=== PATIENT | female | born 1960 | race Caucasian/White ===

== ENCOUNTER → 2018-05-17 19:30 | Outpatient (REF) | payer OTHER, SELFPAY ==
[2018-05-17 19:47] LABS: Alanine Aminotransferase 30 IU/L (9-52); Albumin 4.8 g/dL (3.5-5.0); Albumin Globulin Ratio 1.5 (1.0-2.8); Alkaline Phosphatase 66 U/L (38-126); Aspartate Aminotransferase 22 IU/L (14-36); BUN Creatinine Ratio 18.6 (6-22); Bilirubin Total 0.4 mg/dL (0.2-1.3); Blood Urea Nitrogen 13 mg/dL (7-17); Calcium 9.8 mg/dL (8.4-10.2); Carbon Dioxide 26 mmol/L (22-32); Chloride 100 mmol/L (98-107); Cholesterol 217 mg/dL (140-199); Estimated Glomerular Filt Rate > 60.0 mL/min (>60); Globulin 3.1 g/dL (1.7-4.1); Glucose 105 mg/dL (70-100); HDL Cholesterol 88 mg/dL (40-60); HEMOLYSIS < 15 (0-50); LDL Cholesterol Calculated 93 mg/dL (<100); Potassium 3.8 mmol/L (3.4-5.1); Sodium 137 mmol/L (137-145); Total Protein 7.9 g/dL (6.3-8.2); Triglycerides 182 mg/dL (35-150)
[2018-05-17 19:51] LABS: Add Manual Diff / Slide Review NO; Basophils Absolute Auto 100 /uL (0-100); Basophils Percent Auto 0.9 % (0-2); Eosinophils Absolute Auto 100 /uL (0-450); Eosinophils Percent Auto 1.1 % (2-4); Hematocrit 39.4 % (36-46); Hemoglobin 12.9 g/dL (12.0-16.0); Lymphocytes Absolute Auto 1500 /uL (1100-4500); Lymphocytes Percent Auto 22.5 % (25-40); Mean Corpuscular HGB Conc 32.6 % (30-36); Mean Corpuscular Hemoglobin 29.8 PG (26-34); Mean Corpuscular Volume 91.3 fL (80-100); Monocytes Absolute Auto 400 /uL (0-900); Monocytes Percent Auto 6.5 % (3-14); Neutrophils Absolute Auto 4600 /uL (1500-7000); Platelet Count 270 X10^3/uL (150-400); Red Blood Cell Count 4.31 X10^6/uL (4.0-5.2); Red Cell Distribution Width 13.6 % (11.6-14.8); White Blood Cell Count 6.6 X10^3/uL (4.5-11.0)
== END ==
LOC: LAB 19:30
PROVIDERS: Family Provider Family Medicine Geriatric Medicine; PCP Family Medicine Geriatric Medicine; Visit Provider Family Medicine Geriatric Medicine
DX: Z00.00 Encounter for general adult medical examination without abnormal findings (principal); Z79.899 Other long term (current) drug therapy; Z13.220 Encounter for screening for lipoid disorders; M85.80 Other specified disorders of bone density and structure, unspecified site; F43.23 Adjustment disorder with mixed anxiety and depressed mood
CPT/HCPCS: 36415; 80053; 80061; 85025

== ENCOUNTER → 2020-05-03 11:34 | Outpatient (CLI) | payer OTHER, SELFPAY ==
[2020-05-03 14:00] LABS: Add Manual Diff / Slide Review NO; Basophils Absolute Auto 100 /uL (0-100); Eosinophils Absolute Auto 200 /uL (0-450); Eosinophils Percent Auto 2.7 % (2-4); Hematocrit 40.5 % (36-46); Hemoglobin 13.2 g/dL (12.0-16.0); Lymphocytes Absolute Auto 2200 /uL (1100-4500); Lymphocytes Percent Auto 34.1 % (25-40); Mean Corpuscular HGB Conc 32.5 % (30-36); Mean Corpuscular Hemoglobin 29.7 PG (26-34); Mean Corpuscular Volume 91.2 fL (80-100); Monocytes Absolute Auto 500 /uL (0-900); Monocytes Percent Auto 8.6 % (3-14); Neutrophils Absolute Auto 3400 /uL (1500-7000); Neutrophils Percent Auto 53.6 % (50-75); Platelet Count 282 X10^3/uL (150-400); Red Blood Cell Count 4.44 X10^6/uL (4.0-5.2); Red Cell Distribution Width 13.4 % (11.6-14.8); White Blood Cell Count 6.3 X10^3/uL (4.5-11.0)
[2020-05-03 14:13] LABS: Alanine Aminotransferase 20 IU/L (<35); Albumin 4.6 g/dL (3.5-5.0); Albumin Globulin Ratio 1.3 (1.0-2.8); Alkaline Phosphatase 83 U/L (38-126); Aspartate Aminotransferase 29 IU/L (14-36); BUN Creatinine Ratio 30.9 (6-22); Bilirubin Total 0.2 mg/dL (0.2-1.3); Blood Urea Nitrogen 17 mg/dL (7-17); Calcium 9.4 mg/dL (8.4-10.2); Carbon Dioxide 31 mmol/L (22-32); Chloride 101 mmol/L (98-107); Estimated Glomerular Filt Rate > 60.0 mL/min (>60); Globulin 3.6 g/dL (1.7-4.1); Glucose 98 mg/dL (80-110); HEMOLYSIS < 15 (0-50); Potassium 3.8 mmol/L (3.4-5.1); Sodium 137 mmol/L (137-145); Total Protein 8.2 g/dL (6.3-8.2)
[2020-05-03 14:17] LABS: High Sensitivity CRP - Cardiac 2.9 mg/L (1.0-3.0)
[2020-05-03 14:21] LABS: Erythrocyte Sedimentation Rate 7 MM/HR (0-20)
[2020-05-03 15:07] LABS: Thyroid Stimulating Hormone 1.91 uIU/mL (0.47-4.68)
== END ==
PROVIDERS: Family Provider Family Medicine Geriatric Medicine; PCP Family Medicine; Referring Provider Ophthalmology; Visit Provider Ophthalmology
DX: H53.122 Transient visual loss, left eye (principal)
CPT/HCPCS: 36415; 80053; 84443; 85025; 85651; 86140

== ENCOUNTER → 2020-06-22 12:09 | Outpatient (CLI) | payer OTHER, SELFPAY ==
--- NOTE | 2020-06-22 12:10 | DI.MRI.S_ITS ---
PROCEDURE: MR CERVICAL SPINE WO CON INDICATIONS: Other cervical disc degeneration, unspecified cerv TECHNIQUE: Noncontrast sagittal T1 spin echo and T2 fast spin echo, sagittal STIR, foraminal oblique sagittal T2 fast spin echo, and axial gradient echo or T2 fast spin echo through the cervical spine. COMPARISON: [facility], , CERVICAL SPINE 4 OR 5 VIEWS, 12/12/2013, 14:32. [facility], CT, C-SPINE WITHOUT CONTRAST, 07/25/2009, 12:52. [facility], MR, C-SPINE WITHOUT CONTRAST, 03/24/2014, 13:08. [facility], MR, C-SPINE WITHOUT CONTRAST, 05/03/2008, 10:17. FINDINGS: Image quality: There is artifact associated with the metallic hardware. Alignment and Curvature: There is mild grade 1 anterolisthesis seen at the C7-T1 level. Bone Marrow: Marrow demonstrates normal overall signal. Spinal Cord: Visualized spinal cord has normal size and signal. No cerebellar tonsillar herniation. Paraspinous Soft Tissues: No paravertebral masses. Prevertebral soft tissues are normal in thickness. Extensive postoperative changes are seen, with anterior fixation hardware C3 through C7, with disc spacers seen throughout the fused region. There is also a fusion plate seen posteriorly involving spinous processes across the cervical thoracic junction. The spinal hardware itself is better demonstrated on prior plain film and CT. C2-C3: Normal appearance. C3-C4: Normal appearance. C4-C5: Normal appearance. C5-C6: Normal appearance. C6-C7: There is moderate to severe left-sided neural foraminal narrowing seen at this level. No significant right-sided neural foraminal narrowing can be seen. The central canal is widely patent. C7-T1: Normal appearance. IMPRESSION: Extensive stable postoperative hardware seen anteriorly and posteriorly. There is focal moderate to severe neural foraminal narrowing seen on the left at C6-C7, which is similar to 2015. Dictated by: Jasbir Villavicencio M.D. on 06/22/2020 at 13:31 Approved by: Jasbir Villavicencio M.D. on 06/22/2020 at 13:34
== END ==
PROVIDERS: Family Provider Family Medicine Geriatric Medicine; PCP Family Medicine; Referring Provider Family Medicine; Visit Provider Family Medicine
DX: M50.30 Other cervical disc degeneration, unspecified cervical region (principal); Z98.1 Arthrodesis status
CPT/HCPCS: 72141

== ENCOUNTER → 2023-06-06 11:23 | Outpatient (CLI) | payer OTHER, SELFPAY ==
--- NOTE | 2023-06-06 11:25 | DI.MRI.S_ITS ---
PROCEDURE: MRFOOT LT WO CON INDICATIONS: Primary osteoarthritis, unspecified ankle and foot TECHNIQUE: Multiphasic, multisequence MRI of the forefoot was performed, without intravenous contrast administration. COMPARISON: [facility], CR, XR FOOT 3 VIEWS WEIGHT BEARING BILATERAL, 05/29/2023, 11:46. FINDINGS: Image quality: Excellent. Bones and joints: There is mild flattening of the articular surface at the 2nd metatarsal head with subchondral cystic changes and mild subchondral edema. Osseous edema is seen throughout the 2nd proximal phalanx. There is mild surrounding soft tissue edema. There is moderate hallux valgus and 1st metatarsophalangeal joint osteoarthrosis. There is lateral subluxation of the hallux sesamoids with metatarsal-sesamoid degenerative changes. No intraosseous lesions. Soft tissues: The visualized plantar foot muscles demonstrate normal signal and bulk. Visualized flexor and extensor tendons appear intact, without tenosynovitis. The distal insertions of the peroneus brevis and longus tendons appear intact. The principal Lisfranc ligament appears intact. No soft tissue ganglion cysts or bursal fluid collections. Sagittal images demonstrate no evidence for plantar plate tears. IMPRESSION: 1. 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 2. Osseous edema within the 2nd proximal phalanx is suspicious for an osseous contusion without a definite fracture line seen. 3. Moderate hallux valgus and associated lateral subluxation of the hallux sesamoids. Moderate 1st metatarsophalangeal osteoarthrosis and degenerative changes at the metatarsal-sesamoid articulations. Approved by: Luis Manuel Leon M.D. on 06/08/2023 at 11:00
== END ==
LOC: MRI 11:24
PROVIDERS: Family Provider Family Medicine Geriatric Medicine; PCP Family Medicine; Referring Provider Orthopaedic Surgery Foot and Ankle Surgery; Visit Provider Orthopaedic Surgery Foot and Ankle Surgery
DX: M19.072 Primary osteoarthritis, left ankle and foot (principal); M20.12 Hallux valgus (acquired), left foot; R60.0 Localized edema
CPT/HCPCS: 73718

== ENCOUNTER → 2023-10-03 10:37 | Outpatient (CLI) | payer OTHER, SELFPAY ==
--- NOTE | 2023-10-03 10:38 | DI.MRI.S_ITS ---
PROCEDURE: MR ANKLE RT WO CON INDICATIONS: EVALUATE MIDFOOT PAIN TECHNIQUE: Noncontrast sagittal T1 spin echo and T2 fast spin echo with fat saturation, axial proton density fast spin echo and T2 fast spin echo with fat saturation, coronal T1 spin echo and T2 fast spin echo with fat saturation through the ankle/hindfoot. COMPARISON: [facility], CR, XR FOOT 3+ VIEWS RIGHT, 08/27/2023, 8:46. FINDINGS: Image quality: Excellent. Bones and joints: Osseous edema is seen in the proximal 2nd metatarsal. No hindfoot coalitions. No osteochondral injuries of the talar dome. There is mild degenerative spurring of the dorsal aspect of the talonavicular joint. Nonedematous plantar and posterior calcaneal enthesophytes. Medial structures: The deltoid ligament and the spring ligament complex are intact. Mild posterior tibialis tenosynovitis. The flexor digitorum longus and flexor hallucis longus tendons are intact. The posterior tibial neurovascular bundle appears normal within the tarsal tunnel, without extrinsic mass effect. Lateral structures: Thickening of the calcaneofibular ligament is consistent with remote prior low-grade sprain. The anterior talofibular and posterior talofibular ligaments are intact. The anterior and posterior tibiofibular ligaments are intact. Mild peroneus brevis tenosynovitis. The peroneus longus tendon is intact. The sinus tarsi demonstrates normal fatty signal. Anterior structures: The tibialis anterior, extensor hallucis longus, and extensor digitorum longus tendons appear intact. Posterior and plantar structures: Mild Achilles peritenonitis. Mild thickening of the proximal plantar fascia without adjacent edema. No abductor digiti minimi muscle atrophy to suggest Nicholas neuropathy. IMPRESSION: 1. Osseous edema is seen in the proximal 2nd metatarsal, which may be related to stress reaction or an osseous contusion. No fracture line is seen. 2. Mild posterior tibialis tenosynovitis. 3. Mild tenosynovitis of the peroneus brevis tendon. 4. Remote prior low-grade sprain of the calcaneofibular ligament. 5. Mild Achilles peritendinitis. 6. Mild chronic proximal plantar fasciitis. Approved by: Luis Manuel Leon M.D. on 10/05/2023 at 15:21
== END ==
LOC: MRI 10:37
PROVIDERS: Family Provider Family Medicine Geriatric Medicine; PCP Family Medicine; Referring Provider Orthopaedic Surgery Foot and Ankle Surgery; Visit Provider Orthopaedic Surgery Foot and Ankle Surgery
DX: S93.411A Sprain of calcaneofibular ligament of right ankle, initial encounter (principal); M65.871 Other synovitis and tenosynovitis, right ankle and foot; M79.671 Pain in right foot; M76.61 Achilles tendinitis, right leg; M72.2 Plantar fascial fibromatosis
CPT/HCPCS: 73721